=== PATIENT | male | born 1985 | race Caucasian/White ===

== ENCOUNTER 2018-10-08 10:46 | Emergency (ER) | payer OTHER ==
[~2018-10-08] VITALS: Ht 175.3 cm; Wt 112.5 kg
[~2018-10-08 10:46] MED LIST: COZAAR 50 MG TA50 M2 PO; HYDROCODONE-AP1 EAC6 PO
[2018-10-08] MEDS ORDERED: NEXIUM40 MG PO (10:55)
[2018-10-08 11:44] LABS: ABSOLUTE BASOPHILS 0.1 thou/uL (0.0-0.2); ABSOLUTE EOSINOPHILS 0.1 thou/uL (0.0-0.7); ABSOLUTE MONOCYTES 0.4 thou/uL (0.0-1.2); ABSOLUTE NEUTROPHILS 4.3 thou/uL (1.6-8.1); EOSINOPHILS 2.1 %; HEMATOCRIT 42.3 % (42.0-52.0); HEMOGLOBIN 14.4 gm/dL (14.0-18.0); LYMPHOCYTES 28.7 %; MONOCYTES 6.4 %; NUCLEATED RBCS 0 /100WBC; PLATELET COUNT* 215 thou/uL (150-400); POLYS 61.8 %; RBC 4.65 mil/uL (4.50-6.00); RDW-CV 13.5 % (10.5-14.5)
[2018-10-08 12:03] LABS: CALCIUM 8.7 mg/dL (8.5-10.1); CREATININE 0.8 mg/dL (0.6-1.3); POTASSIUM 3.9 mmol/L (3.5-5.1); TOTAL BILIRUBIN 0.7 mg/dL (<0.1-1.0); TOTAL PROTEIN 7.1 g/dL (6.4-8.2)
[2018-10-08] MEDS ORDERED: TRANSDERM-SCOP1 EACH TRANSDERM (12:20)
[2018-10-08] MEDS ORDERED: BUTALB-APAP-CA1 EACH PO (12:20)
[2018-10-08] MEDS ORDERED: KEFLEX500 M1 PO (12:21)
[2018-10-08 12:40] VITALS: BP 142/101
== END 2018-10-08 12:40 | disposition home or self-care (01) ==
LOC: M.ERS 10:46
PROVIDERS: Physician Assistant
DX: R42 Dizziness and giddiness (principal); I10 Essential (primary) hypertension; J45.909 Unspecified asthma, uncomplicated; Z88.1 Allergy status to other antibiotic agents